=== PATIENT | female | born 1940 | race Caucasian/White ===

== ENCOUNTER 2021-01-16 14:00 | Outpatient (CLI) | payer OTHER | END 2021-01-16 14:11 | disposition home or self-care (01) | LOC: EDBD 14:00 → MAMO-SONO 14:00 | PROVIDERS: ATTEND Specialist | DX: Z12.31 Encounter for screening mammogram for malignant neoplasm of breast (principal); Z87.898 Personal history of other specified conditions; N64.89 Other specified disorders of breast ==

== ENCOUNTER 2021-02-19 14:09 | Outpatient (CLI) | payer OTHER | END 2021-02-19 14:14 | disposition home or self-care (01) | LOC: NUCLEAR 14:09 | PROVIDERS: ATTEND Specialist | DX: M81.0 Age-related osteoporosis without current pathological fracture (principal) ==